=== PATIENT | male | born 1960 | race Caucasian/White ===

== ENCOUNTER → 2018-03-23 | Outpatient (CLI) | payer OTHER ==
--- NOTE | 2018-03-24 22:42 | MR ---
EXAMINATION TYPE: MR shoulder LT wo con DATE OF EXAM: 03/23/2018 COMPARISON: None HISTORY: Lt shoulder pain x 1 year, no trauma TECHNIQUE: Multiplanar, multisequence imaging of the left shoulder is performed without contrast. FINDINGS: Rotator Cuff: There is fluid in the subacromial bursa and subdeltoid bursa. No muscle or tendon retra ction is evident. Small perforation is suspected. Undersurface tear of the distal supraspinatus tendo n could be considered. Acromioclavicular Joint: There is hypertrophy of the acromioclavicular junction with mild inferior sp urring. Larger spur extends superiorly. Glenohumeral Joint: Humeral head articulates with the glenoid. Labrum: The labrum appears grossly intact given limitation of non-arthrogram study. Biceps Tendon: Small amount of fluid surrounds the long head of the biceps tendon. Mild tendinosis ma y be present. Bone marrow signal: No focal abnormal marrow signal is appreciated. Other: No additional significant abnormality is appreciated. IMPRESSION: 1. Small to moderate joint effusion with fluid in the subacromial bursa and subdeltoid bursa. Moderat e tendinosis is likely present. Small perforation be difficult to exclude but is not clearly identifi ed. 2. Acromioclavicular joint hypertrophy with some mild downward spurring can contribute to impingement syndrome. 3. Mild tendinosis long head of the biceps tendon
== END | disposition home or self-care (01) ==
LOC: RADMRIMAIN 18:38
PROVIDERS: ATTEND Orthopaedic Surgery
DX: M25.412 Effusion, left shoulder (principal); M77.8 Other enthesopathies, not elsewhere classified

== ENCOUNTER → 2018-04-26 | Outpatient (CLI) | payer OTHER ==
--- NOTE | 2018-04-26 19:20 | CONS ---
CONSULTATION DATE OF SERVICE: 04/26/2018 57-year-old gentleman has been evaluated in the sleep center for possible obstructive sleep apnea-hypopnea syndrome. 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 and on days when he is off from 10:30 p.m. until 6 or 8:00 a.m. FALLING ASLEEP: Sometimes he has problem with falling asleep. Has TV set in bedroom. DURING SLEEP: Usually he sleeps on the side position. He snores. He wakes up from sleep around 3 times with up to 3 episodes of nocturia. No history of hypnagogic hallucinations, sleep paralysis or cataplexy. DURING THE DAY/SLEEP WAKE EVALUATION: During the day, patient feels sleepiness and taking up to 5 cups of caffeinated beverages. [place] Sleepiness Scale significantly increased to 13. PAST MEDICAL HISTORY: Positive for multiple joint problems including shoulder problems, back problems and knee problems. Headaches and sometimes patient has significant headaches when he wakes up. PAST SURGICAL HISTORY: Right shoulder surgery for rotator cuff problems. MEDICATIONS: Melatonin, patient taking melatonin on a p.r.n. basis when he needs to go to bed early, vitamin D3, multivitamins, and glucosamine and omega-3, vitamin C, ibuprofen on p.r.n. basis. FAMILY HISTORY: Hypertension, hyperlipidemia, stroke, sinus problems, bronchitis, snoring, pneumoniae, headaches, cancer and diabetes. PHYSICAL EXAM: During physical exam, gentleman without distress. BP 124/82, HR 68, RR 16, height 5 feet 9 inches, weight 173, body mass index 25.5, temperature 98.3, oxygen saturation at room air 96%. Oropharynx showed extremely low position of soft palate. Mallampati IV. Neck 14-1/2 inches in circumference. Neck Supple, no JVD. Thyroid is not palpable. LUNGS Clear to percussion and to auscultation. Good air exchange. No wheezing or rhonchi. HEART S1, S2 regular. No murmurs, gallops, or rubs. ABDOMEN Soft and nontender. Bowel sounds are present. No organomegaly appreciated. EXTREMITIES No clubbing or cyanosis. FINISH ROLLS OPERATOR Awake, alert, and oriented X3. Cranial nerves 2 to 7 intact. There is no fasciculation or atrophy. noted. No focal deficits observed. IMPRESSION: 1. Snoring, multiple awakenings from sleep. Small oropharyngeal air space, possible obstructive sleep apnea-hypopnea syndrome. 2. Sleepiness. [place] Sleepiness Scale increased to 13, possibly shift work sleep disorder. The patient is a overnight associate worker. 3. Headaches, sometimes after awakenings from sleep. Could be related to obstructive sleep apnea-hypopnea syndrome. 4. Back problems. 5. Knee problems. 6. Shoulders problems. 7. Status post right shoulder surgery for rotator cuff problems. PLAN: 1. Polysomnography for evaluation of patient's breathing during sleep. 2. CPAP/BiPAP titration if sleep study confirms obstructive sleep apnea-hypopnea syndrome. 3. Preferable position during sleep on the side. 4. No driving if patient feels any sleepiness. 5. I will see patient for follow up visit to explain results of testing and following plan. 6. Multiple sleep latency test if sleep study will be negative for obstructive sleep apnea-hypopnea syndrome. Sincerely, Jalen Diego MD, PhD, FAASM Diplomat of [place] [employer] [place] [employer] Director Report of [facility] MMODL / IJN: [id number] /
== END ==
LOC: SLEEP 13:50
PROVIDERS: ATTEND Internal Medicine
DX: G47.10 Hypersomnia, unspecified (principal); R51 Headache; M54.89 Other dorsalgia; M25.869 Other specified joint disorders, unspecified knee; M25.819 Other specified joint disorders, unspecified shoulder; Z98.890 Other specified postprocedural states; Z99.89 Dependence on other enabling machines and devices; Z79.899 Other long term (current) drug therapy
CPT/HCPCS: 99211

== ENCOUNTER → 2020-02-28 | Outpatient (CLI) | payer OTHER ==
--- NOTE | 2020-02-28 15:56 | CT ---
CT CHEST FOR PULMONARY EMBOLISM. EXAMINATION TYPE: CT angio chest DATE OF EXAM: 02/28/2020 INDICATION: Shortness of breath and elevated heart rate. CT DLP: 565.6 mGycm, Automated exposure control for dose reduction was used. CONTRAST: Patient injected with 60ml mL of Isovue 370. COMPARISON: None TECHNIQUE: CT of the chest is performed without and with on a spiral scan at [address] udy is performed with intravenous contrast timed for evaluation of the aorta. This will limit additi onal portions of the evaluation. 3-D MIP images reconstructed by the technologist are reviewed on [facility] computer in the coronal and sagittal planes. FINDINGS: No thoracic aortic aneurysm or dissection is evident. The ascending thoracic aorta at the aortic root measures 2.8 cm. The ascending thoracic aorta measures 3.4 cm. The thoracic aorta at the arch has a transverse dimension of 2.3 cm. The descending thoracic aorta at the diaphragm measures 2.2 cm. No mediastinal or hilar adenopathy enlarged by CT criteria is evident. The ascending aorta diameter at the level of the main pulmonary artery is 3.4 cm. The main pulmonary artery diameter at the bifur cation is 2.7 cm. Minimal compressive atelectasis within the dependent portions of the lungs bilaterally. Limited CT section through the upper abdomen are unremarkable. IMPRESSIONS: 1. Normal thoracic aorta. 2. Minimal compressive atelectasis within the dependent lungs.
== END | disposition home or self-care (01) ==
LOC: RADCTMAIN 15:13
PROVIDERS: ATTEND Family Medicine
DX: J98.11 Atelectasis (principal); R09.89 Other specified symptoms and signs involving the circulatory and respiratory systems
CPT/HCPCS: 71275; Q9967

== ENCOUNTER 2022-06-29 12:48 | Day surgery (SDC) | payer OTHER ==
[~2022-06-29 12:48] MED LIST: LACTATED RINGERS 1,000 ML IV SCH; LIDOCAINE 1% (10MG/ML) FOR IV START INTRADERMA PRN
[2022-06-29 13:14] VITALS: RESP 16; TEMP 97.7
[2022-06-29] MEDS ORDERED: PROPOFOL 10 MG/ML 20 ML VIAL IV ONE (13:29)
--- NOTE | 2022-06-29 13:52 | P.PCN ---
Date of Procedure: 06/29/22 Procedure(s) Performed: BRIEF HISTORY: Patient is a 61-year-old pleasant white male scheduled for an elective colonoscopy as a part of prior history of colon polyps. Last endoscopy was 5 years ago. PROCEDURE PERFORMED: Colonoscopy. PREOPERATIVE DIAGNOSIS: History of colon polyps. IV sedation per Anesthesia. PROCEDURE: After informed consent was obtained, the patient, was brought into the endoscopy unit. IV sedation was administered by Anesthesia under continuous monitoring. Digital rectal examination was normal. Initially the Olympus CF-160 flexible video colonoscope was then inserted in the rectum, gradually advanced into the cecum without any difficulty. Careful examination was performed as the scope was gradually being withdrawn. Ileocecal valve and the appendiceal orifice were visualized and appeared normal. Prep was excellent. Mucosa of the cecum, ascending colon, appeared normal. In the hepatic flexure there was a 1.5 cm broad-based polyp removed by snare polypectomy. In the transverse colon there was a 6 minute a polyp removed by snare polypectomy. Rest of the transverse c olon, descending colon, sigmoid colon, and rectum appeared normal. In the proximal rectum there was a 7 mm polyp removed by snare polypectomy. Retroflexion was performed in the rectum and no lesions were seen. The patient tolerated the procedure well. IMPRESSION: 1.5 cm broad-based hepatic flexure polyps is post polypectomy 6 mm transverse colon polyp status post polypectomy 7 mm proximal rectal polyp status post-polypectomy Scattered sigmoid diverticula RECOMMENDATIONS: Findings of this examination were discussed with the patient as his family. He was advised to follow with the biopsy results. If the biopsy revealed adenoma he can have a repeat colonoscopy in 3 years..
[2022-06-29 14:03] VITALS: BP 112/77; PULSE 78
== END 2022-06-29 14:36 | disposition home or self-care (01) ==
LOC: ORWHC2ENDO 12:48
PROVIDERS: ATTEND Internal Medicine Gastroenterology
DX: Z12.11 Encounter for screening for malignant neoplasm of colon (principal); D12.3 Benign neoplasm of transverse colon; I10 Essential (primary) hypertension; E78.5 Hyperlipidemia, unspecified; G47.33 Obstructive sleep apnea (adult) (pediatric); Z86.010 Personal history of colon polyps; Z79.899 Other long term (current) drug therapy; K21.9 Gastro-esophageal reflux disease without esophagitis; Z79.891 Long term (current) use of opiate analgesic
CPT/HCPCS: 88305; 45385; J2704

== ENCOUNTER → 2022-07-01 | Outpatient (CLI) | payer OTHER ==
--- NOTE | 2022-07-01 12:03 | CT ---
EXAMINATION TYPE: CT chest wo con DATE OF EXAM: 07/01/2022 COMPARISON: CTA chest February 28, 2020 HISTORY: COPD. CT DLP: 946.20 mGycm. Automated Exposure Control for Dose Reduction was Utilized. TECHNIQUE: CT scan of the thorax is performed without IV contrast. High-resolution protocol with 1 m m sequences obtained in 10 mm intervals in supine and prone technique using full inspiration and expi ration. FINDINGS: LUNGS: Mild underlying emphysematous change. Focal reticulation in the posterior aspect of the bilate ral lower lungs does not go completely away on prone imaging suggesting some mild focal fibrosis left greater than right at this level. There is no pleural effusion or pneumothorax seen bilaterally. The re is no additional areas of significant peripheral reticulation or fibrotic change. No bronchiectasi s or honeycombing. MEDIASTINUM: Lack of IV contrast in technique are noted to limit evaluation for mediastinal and espec ially hilar adenopathy. There are no definitive greater than mediastinal lymph nodes. No cardiomega ly or pericardial effusion is seen. OTHER: No additional significant abnormality is seen. IMPRESSION: Mild emphysematous change with mild focal scarring in the posterior lower lobes bilateral ly left greater than right.
== END | disposition home or self-care (01) ==
LOC: RADCTMAIN 11:31
PROVIDERS: ATTEND Internal Medicine Critical Care Medicine
DX: J43.9 Emphysema, unspecified (principal); J98.4 Other disorders of lung
CPT/HCPCS: 71250

== ENCOUNTER → 2022-07-29 | Outpatient (CLI) | payer OTHER ==
[2022-07-29 15:08] LABS: HCT 44.9 % (39.6-50.0); HGB 14.3 g/dL (13.0-17.0); MCH 29.5 pg (27.0-32.0); MCHC 31.8 g/dL (32.0-37.0); MCV 92.8 fL (80.0-97.0); Mean Platelet Volume 10.6 fL (9.5-12.2); NRBC Per 100 WBC 0 /100 WBCS (0.0-0.0); Platelet Count 205 X 10*3/uL (140-440); RBC 4.84 X 10*6/uL (4.40-5.60); RDW 11.9 % (11.5-14.5); WBC 5.62 X 10*3/uL (4.50-10.00)
[2022-07-29 17:40] LABS: African American GFR (CKD) 94.4 (60.0-200.0); Anion Gap 12.2 mmol/L (10.00-18.00); Blood Urea Nitrogen 12.2 mg/dL (9.0-27.0); Non-African American GFR(CKD) 81.5 (60.0-200.0); Potassium 4.3 mmol/L (3.5-5.5)
== END | disposition home or self-care (01) ==
LOC: LABPAT 10:59
PROVIDERS: ATTEND Internal Medicine
DX: Z01.812 Encounter for preprocedural laboratory examination (principal); R07.9 Chest pain, unspecified
CPT/HCPCS: 80051; 82565; 84520; 85027

== ENCOUNTER 2022-08-05 11:12 | Day surgery (SDC) | payer OTHER ==
[~2022-08-05 11:12] MED LIST changes: +ALPRAZolam 0.25 MG TAB PO PRN; +ALPRAZolam 0.5 MG TAB PO PRN; +ASPIRIN 325 MG TAB PO STA; +ATORVASTATIN 80 MG TAB PO STA; +HEPARIN SODIUM,PORCINE 10,000 UNIT in SODIUM CHLORIDE 0.9% 1,000 ML IRRIGATION PRN; +HEPARIN SODIUM,PORCINE 2,500 UNIT in SODIUM CHLORIDE 0.9% 250 ML IRRIGATION PRN; -LACTATED RINGERS 1,000 ML IV SCH; -LIDOCAINE 1% (10MG/ML) FOR IV START INTRADERMA PRN; +NITROGLYCERIN SL TABS 0.4 MG TAB SUBLINGUAL PRN; +SODIUM CHLORIDE 0.9% 1,000 ML in EMPTY BAG 1 BAG IV SCH
[2022-08-05] MEDS ORDERED: SODIUM CHLORIDE 0.9% 1,000 ML IV ONE (11:24)
[2022-08-05 11:49] VITALS: RESP 16; TEMP 98.5
[2022-08-05] MEDS ORDERED: VERAPAMIL 2.5 MG/ML 2 ML AMP ONE (12:02)
[2022-08-05] MEDS ORDERED: fentaNYL (PF) 50 MCG/ML 2 ML AMP ONE (12:03)
[2022-08-05] MEDS ORDERED: MIDAZOLAM 2 MG/2 ML VIAL IV ONE ×2 (12:18)
[2022-08-05] MEDS ORDERED: fentaNYL (PF) 50 MCG/ML 2 ML AMP IV ONE ×2 (12:18)
[2022-08-05] MEDS ORDERED: LIDOCAINE 1% INJ 10MG/ML (5 ML VIAL-PF) SQ ONE (12:20)
[2022-08-05] MEDS ORDERED: VERAPAMIL SYRINGE (5 MG/10 ML) INTRAARTER ONE (12:22)
[2022-08-05] MEDS ORDERED: HEPARIN SODIUM 1,000 UN/ML (10ML VL) ONE (12:23)
[2022-08-05] MEDS ORDERED: HEPARIN SODIUM 1,000 UN/ML (10ML VL) IV ONE (12:25)
[2022-08-05] MEDS ORDERED: IOPAMIDOL-370 200ML BTL INJ ONE (12:30)
--- NOTE | 2022-08-05 13:00 | P.CARDCATH ---
Description of Procedure: PROCEDURES PERFORMED: Left heart catheterization, bilateral coronary angiography INDICATION: Chest pain and shortness breath concerning for unstable angina CONSENT:I have discussed the risks, benefits and alternative therapies for the above-mentioned procedure and for both sedation/analgesia as well as necessary blood product administration, if indicated, as they pertain to this patient. The patient has indicated understanding and acceptance of the risks and procedures discussed. PROCEDURE: After the risks, benefits and alternatives of the above mentioned procedure explained in detail with the patient, informed consent was obtained. Patient was taken to the catheterization lab and prepped and draped in usual fashion. 1% lidocaine was used to anesthetize the right radial artery. A 6- Brazilian sheath was placed in the right radial artery using modified Seldinger technique. Left coronary angiography was performed with a 5-Brazilian JL 3.5 catheter and right coronary angiography was performed with a 5-Brazilian JR5 catheter in various views. A 5-Brazilian FR5 catheter was inserted into the left ventricle and pressure measurements were obtained. The right radial sheath was removed and a TR band was placed with hemostasis achieved. The patient tolerated the procedure well. Patient was transported back to the post cathete rization holding area in stable condition. Conscious Sedation: Patient was monitored under the direct supervision of myself for conscious sedation using Versed and fentanyl for a total duration of 10 minutes HEMODYNAMICS: Aorta: 144/80 LV: 139/4, LVEDP 9 SELECTIVE CORONARY ARTERIOGRAPHY: LEFT MAIN: The left main is a large caliber vessel which bifurcates into the LAD and circumflex. There is no significant stenosis. LEFT ANTERIOR DESCENDING CORONARY ARTERY: LAD is a large caliber vessel which wraps around to the apex. There is no significant stenosis. LEFT CIRCUMFLEX CORONARY ARTERY: Left circumflex is a moderate caliber vessel without significant stenosis. RIGHT CORONARY ARTERY: The right coronary artery is a large caliber vessel which gives off a PDA and PLV branch and is the dominant vessel. There is no significant stenosis. FINAL IMPRESSION: 1. Normal coronary arteries as described above. 2. Normal left sided filling pressures PLAN: 1. Aggressive risk factor modification per most recent ACC/AHA guidelines. 2. Follow-up in the office in 1-2 weeks.
[2022-08-05 16:21] VITALS: BP 112/74; PULSE 72
== END 2022-08-05 15:51 | disposition home or self-care (01) ==
LOC: CATHCVL 11:12
PROVIDERS: ATTEND Internal Medicine
DX: R07.9 Chest pain, unspecified (principal); I10 Essential (primary) hypertension; E78.5 Hyperlipidemia, unspecified; C61 Malignant neoplasm of prostate; J84.9 Interstitial pulmonary disease, unspecified; F17.210 Nicotine dependence, cigarettes, uncomplicated; Z79.899 Other long term (current) drug therapy; Z79.1 Long term (current) use of non-steroidal anti-inflammatories (NSAID)
CPT/HCPCS: 93458; 99152; J2250; J2001; J3010; J1644; Q9967